=== PATIENT | female | born 2000 | race Caucasian/White ===

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

== ENCOUNTER 2024-10-06 08:47 | Emergency (ER) | payer OTHER ==
[2024-10-06 09:04] VITALS: BMI 48.2
[2024-10-06] MEDS ORDERED: ONDANSETRON 4 MG/2 ML VIAL ONE (09:38)
[2024-10-06] MEDS ORDERED: KETOROLAC TROMETHAMINE 15 MG/ML VIAL ONE (09:38)
[2024-10-06] MEDS: ONDANSETRON 4 MG/2 ML VIAL IVPUSH ONE (09:43)
[2024-10-06] MEDS: KETOROLAC TROMETHAMINE 15 MG/ML VIAL IVPUSH ONE (09:43)
[2024-10-06] MEDS: SODIUM CHLORIDE 0.9% 500 ML INFUS.BAG IV ONE (09:43)
[2024-10-06 11:02] VITALS: BP 122/77; PULSE 99; RESP 14; TEMP 98.9
[2024-10-06 11:29] LABS: HIV INTERPRETATION NEGATIVE (NEGATIVE)
== END 2024-10-06 11:30 | disposition home or self-care (01) ==
LOC: JERFT 08:47 → JER 08:47 → JERFT 11:30
PROC: 3E0333Z Introduction of Anti-inflammatory into Peripheral Vein, Percutaneous Approach (ICD-10-PCS; principal; 2024-10-06)
PROC: 3E033GC Introduction of Other Therapeutic Substance into Peripheral Vein, Percutaneous Approach (ICD-10-PCS; 2024-10-06)
DX: J10.1 Influenza due to other identified influenza virus with other respiratory manifestations (principal); R05.9 Cough, unspecified; R09.81 Nasal congestion; R68.83 Chills (without fever); R11.0 Nausea; R00.0 Tachycardia, unspecified; Z20.822 Contact with and (suspected) exposure to COVID-19
CPT/HCPCS: 0241U-QW; 36415; 71046-TC-FY; 86803; 87389; 99284-25